=== PATIENT | male | born 1990 | race Two or more races ===

== ENCOUNTER 2025-09-04 14:34 | Emergency (ER) | payer MEDICAID, OTHER ==
[~2025-09-04] VITALS: Ht 170.2 cm; Wt 80.3 kg
--- NOTE | 2025-09-04 15:04 | ED.PDOC ---
History of Present Illness HPI Comments The patient with a history of schizophrenia presents for help with medication management. The patient reports being sent from a facility, possibly called [facility] to another program where they were unable to take their prescribed medications for voices and hallucinations so patient left the [facility]. The patient describes ongoing auditory hallucinations and states that thoughts of self-harm or harm to others have crossed their mind, but denies active intent or plan. The patient is not seeking prison and currently lives in the community. Current medications include Latuda, Seroquel, hydroxyzine. Chief Complaint: Anxiety Time Seen by MD: 14:47 Reviewed Notes: Nurses Notes, Medications, Allergies Allergies: Coded Allergies: NO KNOWN ALLERGIES (Unverified , 09/04/25) Information Source: Patient Mode of Arrival: Ambulatory Severity: Moderate Timing: Came on: Suddenly Duration: Since onset Prehospital treatment: None Past Medical History Past Medical History (Other): Schizophrenia Surgical History: Denies all surgeries Family History Family History: Reviewed,noncontributory to illness, Unknown Social History Smoker: Non-Smoker Alcohol: Denies ETOH Use Drugs: Denies Drug Use Lives In: Home Constitutional: denies: chills, diaphoresis, fatigue, fever, malaise, sweats, weakness, others EENTM: denies: blurred vision, double vision, ear bleeding, ear discharge, ear drainage, ear pain, ear ringing, eye pain, eye redness, hearing loss, mouth pain, mouth swelling, nasal discharge, nose bleeding, nose congestion, nose pain, photophobia, tearing, throat pain, throat swelling, voice changes, others Respiratory: denies: cough, hemoptysis, orthopnea, SOB at rest, shortness of breath, SOB with excertion, stridor, wheezing, others Cardiovascular: denies: chest pain, dizzy spells, diaphoresis, Dyspnea on exertion, edema, irregular heart beat, left arm pain, lightheadedness, palpitations, PND, syncope, others Gastrointestinal: denies: abdomen distended, abdominal pain, blood streaked bowels, constipated, diarrhea, dysphagia, difficulty swallowing, hematemesis, melena, nausea, poor appetite, poor fluid intake, rectal bleeding, rectal pain, vomiting, others Genitourinary: denies: burning, dysuria, flank pain, frequency, hematuria, incontinence, penile discharge, penile sore, pain, testicle pain, testicle swelling, urgency, others Neurological: denies: dizziness, fainting, headache, left sided numbness, left sided weakness, numbness, paresthesia, pre-existing deficit, right sided numbness, right sided weakness, seizure, speech problems, tingling, tremors, weakness, others Musculoskeletal: denies: back pain, gout, joint pain, joint swelling, muscle pain, muscle stiffness, neck pain, others Integumetry: denies: bruises, change in color, change in hair/nails, dryness, laceration, lesions, lumps, rash, wounds, others Allergic/Immunocompromised: denies: Difficulty Healing, Frequent Infections, Hives, Itching, others Hematologic/Lymphatic: denies: anemia, blood clots, easy bleeding, easy bruising, swollen glands, others Endocrine: denies: excessive hunger, excessive sweating, excessive thirst, excessive urination, flushing, intolerance to cold, intolerance to heat, une xplained weight gain, unexplained weight loss, others Psychiatric: reports: anxiety, suicidal; denies: bipolar disorder, depression, hopeless, panic disorder, schizophrenia, sleepless, others All Other Systems: Reviewed and Negative Physical Exam General Appearance: No Apparent Distress, Normal HEENT: Normal ENT Inspection, Pharynx Normal, TMs Normal Neck: Full Range of Motion, Non-Tender, Normal, Normal Inspection Respiratory: Chest Non-Tender, Lungs Clear, No Accessory Muscle Use, No Respiratory Distress, Normal Breath Sounds Cardiovascular: No Edema, No JVD, No Murmur, No Gallop, Normal Peripheral Pulses, Regular Rate/Rhythm Breast Exam: Deferred Gastrointestinal: No Organomegaly, Non Tender, No Pulsatile Mass, Normal Bowel Sounds, Soft Genitalia: Deferred Pelvic: Deferred Rectal: Deferred Extremities: No calf tenderness, Normal capillary refill, Normal inspection, Normal range of motion, Non-tender, No pedal edema Musculoskeletal : Apperance: Normal Neurologic: Alert, forensic psychiatrist II-XII nml as Tested, No Motor Deficits, Normal Affect, Normal Mood, No Sensory Deficits Cerebellar Function: Normal Reflexes: Normal Skin: Dry, Normal Color, Warm Lymphatic: No Adenopathy Was a procedure done? Was a procedure done?: No Differential Dx Considerations may include: Panic, schizophrenic, proBNP X-Ray, Labs, Meds, VS Vital Signs Date Time Temp Pulse Resp B/P (MAP) Pulse Ox O2 Delivery O2 Flow Rate FiO2 09/04/25 18:45 136/101 09/04/25 18:41 73 16 98 Room Air 09/04/25 18:41 98.4 73 16 148/108 (121) 98 98.4 09/04/25 15:25 98.2 87 18 140/105 (117) 96 98.2 09/04/25 14:36 98.0 85 15 163/94 96 98.0 Current Medications Medications (Trade) Dose Ordered Sig/Kaia Route Start Time Stop Time Status Last Admin Amlodipine Besylate (Norvasc Tablet) 5 mg ONCE ONCE PO 09/04/25 18:45 09/04/25 18:46 DC 09/04/25 18:45 X-Ray, Labs, Meds, VS Comment Patient arrives alert and oriented, ABC's intact, afebrile, vital signs stable, saturating well in room air The patient with hx of schizophrenia bipolar disorder presents with medication interruption and ongoing auditory hallucinations after being transferred from a facility that did not permit continuation of antipsychotic medications. The patient reports passive thoughts of self-harm. -Psychiatry consult requested for medication management and assessment. -Pending psych consult. Will endorse pt to Lev[facility] Nicole RECOMMENDATIONS: 1. Legal: Initiate 5150 for DTS and GD due to command hallucinations to harm self, ongoing self-harm thoughts, inability to articulate safe discharge plan, and impaired ability to provide for basic needs in the setting of active psychosis and homelessness. 2. Disposition: Refer for inpatient psychiatric admission once medically cleared for psychiatric placement. Maintain appropriate safety precautions/observation while awaiting placement. 3. Medications: Start olanzapine (Zyprexa) 10 mg PO QHS for psychosis (patient agreeable). Defer additional medication changes (e.g., prazosin) to inpatient team after further diagnostic clarification and monitoring. 4. Medical considerations: Obtain basic medical clearance labs including CBC, CMP, TSH (as indicated), BAL, and urine drug screen (UDS); consider EKG if clinically indicated and monitor vitals/withdrawal risk given alcohol history. 5. Other: Encourage linkage to dual-diagnosis treatment (psychosis + LAVERN). Monitor for alcohol withdrawal; consider CIWA protocol if indicated. Provide nicotine replacement if needed. Coordinate with social work for housing/resources after stabilization. Time of 1ST Reevaluation: 15:03 Reevaluation 1ST: Unchanged Consultation: Psychiatry Patient Education/Counseling: Diagnosis, Treatment, Prognosis Family Education/Counseling: No Family Present SEPSIS Sepsis Screen Date sepsis recognized/suspect: Sep 04, 2025 Time Sepsis recognized/suspect: 1437 Recent Procedure: No On Antibiotic Therapy: No Respiratory Rate >20: No Heart Rate >90: No Temp<36 C (96.8 F) or >38.3 C: No SBP <90 or MAP <65 mmHG: No New Acute Mental Status Change: No Is the patient on CPAP, BIPAP,: No Physician Orders * Psychiatric Consult (09/04/25 15:12) Urinalysis (09/04/25 15:12) Drug Screen (09/04/25 15:12) Electrocardigram (09/04/25 15:24) Olanzapine Tablet (Zyprexa Tablet) (09/04/25 20:45) Vital Signs Date Time Temp Pulse Resp B/P (MAP) Pulse Ox O2 Delivery O2 Flow Rate FiO2 09/04/25 18:45 136/101 09/04/25 18:41 73 16 98 Room Air 09/04/25 18:41 98.4 73 16 148/108 (121) 98 98.4 09/04/25 15:25 98.2 87 18 140/105 (117) 96 98.2 09/04/25 14:36 98.0 85 15 163/94 96 98.0 Medications Medications Dose Ordered Sig/Kaia Route Start Time Stop Time Status Last Admin Dose Admin Amlodipine Besylate 5 mg ONCE ONCE PO 09/04/25 18:45 09/04/25 18:46 DC 09/04/25 18:45 Departure 1 Departure Time of Disposition: 17:36 Impression: Primary Impression: Schizophrenia Qualified Codes: F20.9 - Schizophrenia, unspecified Disposition: 30 STILL A PATIENT Condition: Stable Discharged With: Relative Critical Care Note Critical Care Time?: No Stability Stability form required: No Heart Score Heart Score: Heart Score Response (Comments) Value History N/A 0 EKG N/A 0 Age N/A 0 Risk Factors N/A 0 Troponin N/A 0 Total 0 I personally scribed for SHAILESH MCKENZIE NP ([email or web address]) on 09/04/25 at 15:30. Electronically submitted by John Tran ([email or web address]). SHAILESH MCKENZIE NP Sep 04, 2025 15:03 LEVON MADERA Sep 04, 2025 16:41
--- NOTE | 2025-09-04 20:21 | DVHINCON2 ---
Date of Service if different f: Sep 04, 2025 Time of Service: 18:40 Consultation ([facility]) Vitals Vital Signs Date Time Temp Pulse Resp B/P (MAP) Pulse Ox O2 Delivery O2 Flow Rate FiO2 09/04/25 18:45 136/101 09/04/25 18:41 73 16 98 Room Air 09/04/25 18:41 98.4 98.4 REASON FOR CONSULT: CAH to harm himself HPI: 35yo M, reports h/o Schizophrenia, provides med list as Latuda, Seroquel and Hydroxyzine, presented voluntarily to the ED for assistance with medication management. He also reported CAH to harm himself though he is documented as denying intent or plan. On interview, pt is fully oriented. He is here because he needs help. He has been experiencing voices. He has been off his medications for 2 days. He was sent to a program, but told he could not get his antipsychotics, so he left. Two days ago, pt cannot recall what he was given, but was not given antipsychotics. Has not been an any antipsychotics for some months, but he cannot recall when he last had. Pt says he has been struggling the last few months, going through rough times. He will get admitted into a program, then leave. However, this time he wants help. Says if sent somewhere, he will stay. Currently, pt reports ongoing negative AH. He reports ongoing thoughts to harm himself. He cannot give details when asked. He does say it is hard to be normal, so he self-medicates with alcohol, fentanyl and methamphetamine. He thinks they help him. He just relapsed 2 mos ago, prior was sober 9 months. Pt says he wants to stabilize, just wants to calm his thoughts, wants his life back. Pt denies access to firearms. Discussed medication options. Pt wants to start an antipsychotic and Prazosin. He is amenable to stating with Zyprexa 10 mg QHS. PSYCHIATRIC HISTORY: DIAGNOSIS: Reports prior diagnosis, Schizophrenia, Bipolar Disorder, PTSD. ADMISSIONS: Prior admissions. MEDICATION TRIALS: Zyprexa, Zoloft, Risperdal, Prazosin. Denies overt SE to any of these meds. OUTPATIENT CARE: Was in care 2-3 months ago. THERAPY: Has been in the past. SI/SELF-INJURY/SUICIDE ATTEMPT: Denies prior self-injury. Reports prior suicide attempts twice, cannot recall when, not within the past year. No access to firearms. SUBSTANCE USE: Etoh Last drink yesterday. Drinks about 3 days a week, about 3 beers per siting, but says he does not really count. Reports history of withdrawal tremors, no prior DTs. No prior DUI. Fentanyl Last use a week ago. Used about 6 times in the 2 months. Meth Last use yesterday. Uses 4 times a week. Cannabis Used yesterday. Uses almost daily. RELEVANT MEDICAL HISTORY: Denies any SOCIAL HISTORY: Obtained GED. No college. Last employed in a long time. Has children 11, 13 and 7 yo. Single. Homeless. ALLERGIES: Denies MENTAL STATUS EXAMINATION: Patient is a 35-year-old man, awake, alert, and fully oriented to person, place, time, and situation. He appears disheveled with fair hygiene, and is cooperative but visibly distressed. Eye contact is intermittent. Psychomotor activity is mildly restless. Speech is spontaneous, normal in rate and volume. Mood is described as struggling and needs help, with affect anxious/dysphoric and congruent. Thought process is generally linear but intermittently vague and difficult to follow when discussing safety concerns. Thought content is notable for ongoing auditory hallucinations, described as negative voices, including command-type content to harm himself, and ongoing thoughts of self-harm without ability to provide clear details when pressed. He denies homicidal ideation. No clear delusions elicited. He denies access to firearms. Insight is limited and judgment is impaired as evidenced by medication nonadherence, recurrent program elopement, active substance use to self-medicate, and inability to articulate a viable plan for safety or self-care. DIFFERENTIAL DIAGNOSIS: Schizophrenia vs Schizoaffective disorder Unspecified psychotic disorder Substance-induced psychotic disorder (methamphetamine-induced vs mixed substance-induced) Bipolar disorder with psychotic features (by history) PTSD (by history) Major depressive disorder with psychotic features Alcohol, stimulant (methamphetamine), opioid (fentanyl), and cannabis use disorders ASSESSMENT: 35-year-old homeless man with reported history of schizophrenia/bipolar/PTSD, multiple prior psychiatric admissions, and polysubstance use (recent meth yesterday, EtOH yesterday, fentanyl within a week, cannabis daily), presenting requesting help with medication management and reporting ongoing auditory hallucinations with command-type content to harm himself. He endorses ongoing thoughts to harm himself and is unable to provide a clear safety plan or reliably contract for safety. He has been off antipsychotics with inconsistent treatment engagement, repeatedly leaving programs, and demonstrates impaired judgment and inability to ensure basic self-care given homelessness, active psychosis, and substance use. Given command hallucinations, ongoing self-harm thoughts, poor reliability, lack of stable housing/supports, and inability to safely care for self, patient meets criteria for involuntary fci for Danger to Self (DTS) and Gravely Disabled (GD). He requires inpatient psychiatric admission for safety, stabilization, medication initiation, and coordination of substance use treatment. RECOMMENDATIONS: 1. Legal: Initiate 5150 for DTS and GD due to command hallucinations to harm self, ongoing self-harm thoughts, inability to articulate safe discharge plan, and impaired ability to provide for basic needs in the setting of active psychosis and homelessness. 2. Disposition: Refer for inpatient psychiatric admission once medically cleared for psychiatric placement. Maintain appropriate safety precautions/observation while awaiting placement. 3. Medications: Start olanzapine (Zyprexa) 10 mg PO QHS for psychosis (patient agreeable). Defer additional medication changes (e.g., prazosin) to inpatient team after further diagnostic clarification and monitoring. 4. Medical considerations: Obtain basic medical clearance labs including CBC, C MP, TSH (as indicated), BAL, and urine drug screen (UDS); consider EKG if clinically indicated and monitor vitals/withdrawal risk given alcohol history. 5. Other: Encourage linkage to dual-diagnosis treatment (psychosis + LAVERN). Monitor for alcohol withdrawal; consider CIWA protocol if indicated. Provide nicotine replacement if needed. Coordinate with social work for housing/resourc es after stabilization. JAYJAY ROGERS MD Sep 04, 2025 20:21
[2025-09-04] MEDS: OLANZapine 5 MG TAB PO ONE (20:45)
[2025-09-05 01:32] VITALS: PULSE 83; RESP 16; O2SAT 99
[2025-09-05 07:43] VITALS: PULSE 61; RESP 16; O2SAT 0
[2025-09-05 17:26] LABS: Urine Budding Yeast OCCASIONAL /hpf (None Seen); Urine Protein, UAD TRACE (Negative)
[2025-09-05 17:36] LABS: Amphetamine Screen, Urine Neg (NEGATIVE); Cannabinoid Screen, Urine Pos (NEGATIVE)
[2025-09-05 17:40] LABS: Barbiturate Scree,Urine Neg (NEGATIVE); Benzodiazephine Screen, Urine Neg (NEGATIVE); Cocaine Screen, Urine Neg (NEGATIVE); Opiate Scree,Urine Neg (NEGATIVE); Phencyclidine Screen, Urine Neg (NEGATIVE)
[2025-09-05 19:27] VITALS: BP 124/98; PULSE 83; RESP 18; TEMP 98.6; O2SAT 100
== END 2025-09-04 19:41 ==
LOC: ER 14:34
DX: F20.9 Schizophrenia, unspecified (principal); F41.9 Anxiety disorder, unspecified; Z79.899 Other long term (current) drug therapy
CPT/HCPCS: 80307; 81001; 99285; A4649